=== PATIENT | female | born 1975 | race African-American/Black ===

== ENCOUNTER 2022-10-26 05:49 | Emergency (ER) | payer MEDICAID, OTHER ==
[~2022-10-26] VITALS: Ht 167.6 cm; Wt 64.0 kg
[2022-10-26] MEDS ORDERED: HYDR-4001 MT (07:07)
[2022-10-26] MEDS ORDERED: HYDROCODONE/ACETAMINOPHEN 5/325MG TABLET PO ONE (07:15)
[2022-10-26 08:47] VITALS: BP 133/93
== END 2022-10-26 08:48 | disposition home or self-care (01) ==
LOC: ER 05:49
DX: R59.0 Localized enlarged lymph nodes (principal); R00.0 Tachycardia, unspecified; I73.9 Peripheral vascular disease, unspecified; Z95.1 Presence of aortocoronary bypass graft
CPT/HCPCS: 93005; 99283

== ENCOUNTER 2022-10-30 03:15 | Inpatient (IN) | payer MEDICAID, OTHER ==
[~2022-10-30] VITALS: Ht 170.2 cm; Wt 59.9 kg
[~2022-10-30 03:15] MED LIST: HYDR-4001 MT
[2022-10-30 04:47] LABS: HEMATOCRIT. 32.6 % (36.0-48.0); HEMOGLOBIN. 10.9 g/dL (12.0-16.0); MEAN CORPUSCULAR HEMOGLOBIN 28.3 pg (28.0-32.0); MEAN CORPUSCULAR VOLUME 84.9 fL (81.0-99.0); MEAN PLATELET VOLUME 7.1 fl (7.4-10.4); PLATELET 638 x1000/uL (130-400); RED BLOOD CELL COUNT 3.84 mill/uL (4.2-5.4); RED CELL DISTRIBUTION WIDTH 17.4 % (11.6-14.6)
[2022-10-30 04:54] LABS: CHLORIDE 93 mEq/L (98-107)
[2022-10-30 04:57] LABS: INR 1.2; PROTHROMBIN TIME 12.4 sec (9.6-11.0)
[2022-10-30] MEDS ORDERED: ONDANSETRON HCL 4MG/2ML INJ IV STA (05:22)
[2022-10-30] MEDS ORDERED: MORPHINE SULFATE 4 MG/ML CPJ (NOT FOR IM USE) IV STA (05:22)
[2022-10-30] MEDS ORDERED: DIPHENHYDRAMINE 50MG/ML VIAL IV ONE (05:30)
[2022-10-30] MEDS ORDERED: PIPERACILLIN/TAZ 3.375G PREMIX 50 ML IV ONE (06:00)
[2022-10-30] MEDS ORDERED: VANCOMYCIN 1G PREMIX 200 ML IV ONE (06:00)
[2022-10-30] MEDS ORDERED: SODIUM CHLORIDE 0.9% 1000ML BAG (SEPSIS BOLUS) IV ONE (06:00)
[2022-10-30 06:20] LABS: PLATELET ESTIMATE INCREAS
[2022-10-30 06:27] LABS: CHLORIDE 92 mEq/L (98-107)
[2022-10-30 06:46] LABS: INR 1.2; PROTHROMBIN TIME 12.3 sec (9.6-11.0)
[2022-10-30] MEDS ORDERED: VANCOMYCIN 1G PREMIX 200 ML IV NR (07:45)
[2022-10-30] MEDS ORDERED: ACETAMINOPHEN 325MG TABLET PO ONE (08:15)
[2022-10-30 09:35] LABS: HCG SCREEN NEGATIVE
[2022-10-30] MEDS: KETOROLAC 30MG/ML VIAL IV PRN ×3 (11:51→23:45)
[2022-10-30] MEDS ORDERED: NALOXONE HCL 0.4MG/ML VIAL IV PRN (12:00)
[2022-10-30] MEDS ORDERED: MORPHINE SULFATE 4 MG/ML CPJ (NOT FOR IM USE) IV ONE (13:00)
[2022-10-30] MEDS ORDERED: PIPERACILLIN/TAZOBACTAM 3.375 G in DEXTROSE 5% WATER 50 ML IV SCH (14:00)
[2022-10-30] MEDS ORDERED: PIPERACILLIN/TAZ 3.375G PREMIX 50 ML IV SCH (14:00)
[2022-10-30 17:00] VITALS: BP 152/83
[2022-10-30 17:07] VITALS: BP 152/83
[2022-10-30] MEDS ORDERED: PROT20 PO (18:10)
[2022-10-30] MEDS ORDERED: ASPI-1497 PO (18:10)
[2022-10-30] MEDS ORDERED: BENA40TA91 PO (18:10)
[2022-10-30] MEDS ORDERED: AMLO10TA80 PO (18:10)
[2022-10-30] MEDS ORDERED: LACTULOSE 20G/30ML UDC PO NR (18:45)
[2022-10-30] MEDS: AMLODIPINE 5MG TABLET PO SCH (18:54)
[2022-10-30 19:59] LABS: CLARITY URINE CLOUDY (CLEAR); COLOR URINE DARK YELLOW (YELLOW); KETONES URINE TRACE (NEGATIVE); LEUKOCYTE ESTERASE URINE TRACE (NEGATIVE); NITRITE URINE NEGATIVE (NEGATIVE); OCCULT BLOOD URINE NEGATIVE (NEGATIVE); PH URINE 5.5 (4.5-8.0); PROTEIN URINE 1+ (NEGATIVE); SPECIFIC GRAVITY URINE 1.027 (1.005-1.030)
[2022-10-30 20:00] VITALS: BP 126/73
[2022-10-30 20:18] LABS: *AMPHETAMINES SCREEN URINE NEGATIVE (NEGATIVE); *BARBITURATES SCREEN URINE NEGATIVE (NEGATIVE); *BENZODIAZEPINES SCREEN URINE NEGATIVE (NEGATIVE); *COCAINE SCREEN URINE NEGATIVE (NEGATIVE); METHADONE URINE SCREEN NEGATIVE (NEGATIVE); PHENCYCLIDINE URINE SCREEN NEGATIVE (NEGATIVE)
[2022-10-30 20:51] LABS: CANNABINOID URINE SCREEN PRESUMTIVE POSITIVE (NEGATIVE); OPIATES URINE SCREEN PRESUMTIVE POSITIVE (NEGATIVE)
[2022-10-30] MEDS: VANCOMYCIN 1G PREMIX 200 ML IV SCH (22:07)
[2022-10-30] MEDS: PIPERACILLIN/TAZOBACTAM 3.375G in DEXT 5% WATER 50ML IV SCH (22:07)
[2022-10-30] MEDS: ONDANSETRON HCL 4MG/2ML INJ IV PRN (22:58)
[2022-10-31] VITALS: BP 145/84
[2022-10-31] MEDS: ACETAMINOPHEN 325MG TABLET PO PRN ×2 (01:32→15:05)
[2022-10-31 04:00] VITALS: BP 145/84
[2022-10-31] MEDS: KETOROLAC 30MG/ML VIAL IV PRN ×3 (05:56→18:24)
[2022-10-31 07:11] LABS: HEMATOCRIT. 29.9 % (36.0-48.0); HEMOGLOBIN. 10.1 g/dL (12.0-16.0); MEAN CORPUSCULAR HEMOGLOBIN 28.6 pg (28.0-32.0); MEAN CORPUSCULAR VOLUME 85.1 fL (81.0-99.0); MEAN PLATELET VOLUME 7.1 fl (7.4-10.4); PLATELET 475 x1000/uL (130-400); RED BLOOD CELL COUNT 3.52 mill/uL (4.2-5.4); RED CELL DISTRIBUTION WIDTH 17.7 % (11.6-14.6)
[2022-10-31 07:25] LABS: CHLORIDE 99 mEq/L (98-107)
[2022-10-31] MEDS: PIPERACILLIN/TAZOBACTAM 3.375G in DEXT 5% WATER 50ML IV SCH ×3 (07:29→22:22)
[2022-10-31 08:00] VITALS: BP 133/78
[2022-10-31] MEDS: VANCOMYCIN 1G PREMIX 200 ML IV SCH ×2 (09:00→20:48)
[2022-10-31] MEDS: AMLODIPINE 5MG TABLET PO SCH (09:00)
[2022-10-31] MEDS: HYDROCODONE/ACETAMINOPHEN 5/325MG TABLET PO PRN ×2 (09:12→20:56)
[2022-10-31] MEDS ORDERED: POTASSIUM CHLORIDE 20MEQ TABLET SR PO NR (11:45)
[2022-10-31 12:00] VITALS: BP 128/69
[2022-10-31 16:00] VITALS: BP 145/79
[2022-10-31 16:29] LABS: PLATELET ESTIMATE INCREASED
[2022-10-31] MEDS: TRAMADOL 50MG TABLET PO PRN (17:06)
[2022-10-31] MEDS ORDERED: NON FORMULARY PATIENT HOME MED PO PRN (19:00)
[2022-10-31 20:00] VITALS: BP 140/89
[2022-11-01] VITALS: BP 120/75
[2022-11-01] MEDS: KETOROLAC 30MG/ML VIAL IV PRN ×4 (00:21→19:19)
[2022-11-01] MEDS: MELATONIN 3MG TABLET PO PRN ×2 (00:26→23:13)
[2022-11-01] MEDS: HYDROCODONE/ACETAMINOPHEN 5/325MG TABLET PO PRN ×2 (03:00→10:03)
[2022-11-01 04:00] VITALS: BP 124/77
[2022-11-01] MEDS: PIPERACILLIN/TAZOBACTAM 3.375G in DEXT 5% WATER 50ML IV SCH ×3 (05:19→21:11)
[2022-11-01 07:27] LABS: CHLORIDE 97 mEq/L (98-107)
[2022-11-01 08:00] VITALS: BP 125/71
[2022-11-01] MEDS: VANCOMYCIN 1G PREMIX 200 ML IV SCH ×2 (10:02→18:33)
[2022-11-01] MEDS: AMLODIPINE 5MG TABLET PO SCH (10:04)
[2022-11-01] MEDS ORDERED: POTASSIUM CHLORIDE 20MEQ TABLET SR PO NR (11:30)
[2022-11-01 12:00] VITALS: BP 117/70
[2022-11-01 14:36] LABS: HEMATOCRIT. 28.3 % (36.0-48.0); HEMOGLOBIN. 9.3 g/dL (12.0-16.0); MEAN CORPUSCULAR HEMOGLOBIN 28.3 pg (28.0-32.0); MEAN PLATELET VOLUME 7.4 fl (7.4-10.4); PLATELET 477 x1000/uL (130-400); RED BLOOD CELL COUNT 3.29 mill/uL (4.2-5.4)
[2022-11-01 16:00] VITALS: BP 134/71
[2022-11-01] MEDS: OXYCODONE HCL/ACETAMINOPHEN 5/325MG TABLET PO PRN ×2 (16:02→23:04)
[2022-11-01 20:00] VITALS: BP 121/65
[2022-11-01 21:56] LABS: PLATELET ESTIMATE INCREASED
[2022-11-02] VITALS (7 sets, daily range): BP systolic 101–150; BP diastolic 53–71
[2022-11-02] MEDS: VANCOMYCIN 1G PREMIX 200 ML IV SCH ×3 (01:23→17:12)
[2022-11-02] MEDS: KETOROLAC 30MG/ML VIAL IV PRN ×3 (01:24→09:55)
[2022-11-02] MEDS: OXYCODONE HCL/ACETAMINOPHEN 5/325MG TABLET PO PRN ×2 (04:11→11:06)
[2022-11-02] MEDS: PIPERACILLIN/TAZOBACTAM 3.375G in DEXT 5% WATER 50ML IV SCH ×3 (05:29→21:52)
[2022-11-02 07:01] LABS: CHLORIDE 98 mEq/L (98-107)
[2022-11-02 07:17] LABS: BASOPHILS % 0.3 % (0.0-2.0); EOSINOPHILS % 0.2 % (0.0-5.0); HEMATOCRIT. 26.5 % (36.0-48.0); HEMOGLOBIN. 8.8 g/dL (12.0-16.0); LYMPHOCYTES % 8.7 % (20.0-50.0); MEAN CORPUSCULAR HEMOGLOBIN 28.1 pg (28.0-32.0); MEAN CORPUSCULAR VOLUME 84.7 fL (81.0-99.0); MEAN PLATELET VOLUME 7.4 fl (7.4-10.4); MONOCYTES % 6.8 % (2.0-8.0); PLATELET 478 x1000/uL (130-400); RED BLOOD CELL COUNT 3.13 mill/uL (4.2-5.4); RED CELL DISTRIBUTION WIDTH 17.6 % (11.6-14.6)
[2022-11-02] MEDS: AMLODIPINE 5MG TABLET PO SCH (08:08)
[2022-11-02] MEDS ORDERED: POTASSIUM CHLORIDE 20MEQ TABLET SR PO NR (10:00)
[2022-11-02] MEDS: LIDOCAINE 5% PATCH TOP SCH (13:36)
[2022-11-02] MEDS: ACETAMINOPHEN 325MG TABLET PO SCH ×2 (13:36→17:12)
[2022-11-02] MEDS: DOCUSATE SODIUM 250MG CAPSULE PO SCH (13:37)
[2022-11-02] MEDS: TRAMADOL 50MG TABLET PO PRN (13:37)
[2022-11-02] MEDS: OXYCODONE HCL 5MG TABLET PO PRN ×2 (16:22→21:51)
[2022-11-02] MEDS: DIPHENHYDRAMINE 50MG/ML VIAL IV PRN (17:58)
[2022-11-02] MEDS: MELATONIN 3MG TABLET PO PRN (21:52)
[2022-11-02] MEDS: GUAIFENESIN 600MG ER TABLET PO SCH (22:00)
[2022-11-03] VITALS: BP 137/71
[2022-11-03] MEDS: ACETAMINOPHEN 325MG TABLET PO SCH ×5 (00:37→23:54)
[2022-11-03] MEDS: TRAMADOL 50MG TABLET PO PRN ×2 (02:04→08:21)
[2022-11-03] MEDS: VANCOMYCIN 1G PREMIX 200 ML IV SCH ×3 (02:13→17:33)
[2022-11-03 04:00] VITALS: BP 129/73
[2022-11-03] MEDS: OXYCODONE HCL 5MG TABLET PO PRN ×5 (04:45→21:55)
[2022-11-03] MEDS: PIPERACILLIN/TAZOBACTAM 3.375G in DEXT 5% WATER 50ML IV SCH ×3 (06:08→20:39)
[2022-11-03] MEDS ORDERED: LIDOCAINE HCL 1% 30ML VIAL (10MG/ML) ONE (08:03)
[2022-11-03] MEDS: DOCUSATE SODIUM 250MG CAPSULE PO SCH (08:21)
[2022-11-03] MEDS: AMLODIPINE 5MG TABLET PO SCH (08:21)
[2022-11-03] MEDS: GUAIFENESIN 600MG ER TABLET PO SCH ×2 (08:21→20:38)
[2022-11-03] MEDS: LIDOCAINE 5% PATCH TOP SCH (08:22)
[2022-11-03 08:29] VITALS: BP 154/80
[2022-11-03] MEDS: LORAZEPAM 2MG/ML CPJ IV PRN (09:58)
[2022-11-03] MEDS ORDERED: POTASSIUM CHLORIDE 20MEQ TABLET SR PO NR (11:15)
[2022-11-03 12:00] VITALS: BP 137/70
[2022-11-03] MEDS: DIPHENHYDRAMINE 50MG/ML VIAL IV PRN ×2 (12:03→22:03)
[2022-11-03 16:00] VITALS: BP 102/61
[2022-11-03 20:00] VITALS: BP 113/61
[2022-11-04] VITALS: BP 153/81
[2022-11-04] MEDS: MELATONIN 3MG TABLET PO PRN (01:05)
[2022-11-04] MEDS: ACETAMINOPHEN 325MG TABLET PO SCH ×2 (01:07→12:00)
[2022-11-04] MEDS: OXYCODONE HCL 5MG TABLET PO PRN ×4 (04:04→21:14)
[2022-11-04] MEDS: DIPHENHYDRAMINE 50MG/ML VIAL IV PRN ×3 (04:05→17:06)
[2022-11-04 04:27] VITALS: BP 125/67
[2022-11-04 06:20] LABS: CHLORIDE 98 mEq/L (98-107)
[2022-11-04 06:28] LABS: BASOPHILS % 0.7 % (0.0-2.0); EOSINOPHILS % 0.3 % (0.0-5.0); HEMATOCRIT. 24.9 % (36.0-48.0); HEMOGLOBIN. 8.3 g/dL (12.0-16.0); LYMPHOCYTES % 13.8 % (20.0-50.0); MEAN CORPUSCULAR HEMOGLOBIN 27.8 pg (28.0-32.0); MEAN CORPUSCULAR VOLUME 83.6 fL (81.0-99.0); MEAN PLATELET VOLUME 7.1 fl (7.4-10.4); MONOCYTES % 7.7 % (2.0-8.0); NEUTROPHILS % 77.5 % (40.0-76.0); PLATELET 491 x1000/uL (130-400); RED BLOOD CELL COUNT 2.98 mill/uL (4.2-5.4); RED CELL DISTRIBUTION WIDTH 18.2 % (11.6-14.6)
[2022-11-04] MEDS: PIPERACILLIN/TAZOBACTAM 3.375G in DEXT 5% WATER 50ML IV SCH ×3 (06:43→21:04)
[2022-11-04 08:00] VITALS: BP 128/67
[2022-11-04] MEDS ORDERED: LIDOCAINE HCL 1% 10 MG/ML 10ML VIAL ONE (08:29)
[2022-11-04] MEDS: LIDOCAINE 5% PATCH TOP SCH (09:25)
[2022-11-04] MEDS: ACETAMINOPHEN 325MG TABLET PO PRN (09:26)
[2022-11-04] MEDS: DOCUSATE SODIUM 250MG CAPSULE PO SCH (09:26)
[2022-11-04] MEDS: GUAIFENESIN 600MG ER TABLET PO SCH ×2 (09:26→21:07)
[2022-11-04] MEDS: AMLODIPINE 5MG TABLET PO SCH (09:26)
[2022-11-04] MEDS ORDERED: LIDOCAINE HCL/PF 1% 10 MG/ML 5ML VIAL ONE (11:15)
[2022-11-04] MEDS ORDERED: MORPHINE SULFATE 2 MG/ML CPJ (NOT FOR IM USE) IV NR (11:30)
[2022-11-04 12:00] VITALS: BP 102/56
[2022-11-04] MEDS: LORAZEPAM 2MG/ML CPJ IV PRN ×2 (13:30→21:05)
[2022-11-04 16:00] VITALS: BP 138/74
[2022-11-04 20:00] VITALS: BP 130/70
[2022-11-05] VITALS (7 sets, daily range): BP systolic 101–128; BP diastolic 58–74
[2022-11-05] MEDS: DIPHENHYDRAMINE 50MG/ML VIAL IV PRN ×2 (01:23→08:18)
[2022-11-05] MEDS: OXYCODONE HCL 5MG TABLET PO PRN ×6 (01:23→22:04)
[2022-11-05] MEDS: MELATONIN 3MG TABLET PO PRN (03:43)
[2022-11-05] MEDS: PIPERACILLIN/TAZOBACTAM 3.375G in DEXT 5% WATER 50ML IV SCH ×3 (05:42→22:04)
[2022-11-05 06:32] LABS: BASOPHILS % 0.5 % (0.0-2.0); EOSINOPHILS % 0.2 % (0.0-5.0); HEMATOCRIT. 25.2 % (36.0-48.0); HEMOGLOBIN. 8.4 g/dL (12.0-16.0); LYMPHOCYTES % 14.8 % (20.0-50.0); MEAN CORPUSCULAR HEMOGLOBIN 27.7 pg (28.0-32.0); MEAN CORPUSCULAR VOLUME 83.7 fL (81.0-99.0); MEAN PLATELET VOLUME 6.9 fl (7.4-10.4); MONOCYTES % 7.2 % (2.0-8.0); NEUTROPHILS % 77.3 % (40.0-76.0); PLATELET 594 x1000/uL (130-400); RED BLOOD CELL COUNT 3.01 mill/uL (4.2-5.4); RED CELL DISTRIBUTION WIDTH 17.8 % (11.6-14.6)
[2022-11-05 06:41] LABS: CHLORIDE 96 mEq/L (98-107)
[2022-11-05] MEDS: LIDOCAINE 5% PATCH TOP SCH (08:17)
[2022-11-05] MEDS: GUAIFENESIN 600MG ER TABLET PO SCH ×2 (08:17→20:33)
[2022-11-05] MEDS: AMLODIPINE 5MG TABLET PO SCH (08:18)
[2022-11-05] MEDS: DOCUSATE SODIUM 250MG CAPSULE PO SCH (08:18)
[2022-11-05] MEDS ORDERED: DIPHENHYDRAMINE 12.5MG/5ML UDC PO PRN (12:45)
[2022-11-05] MEDS: IBUPROFEN 600MG TABLET PO SCH ×2 (12:57→20:33)
[2022-11-05] MEDS ORDERED: DIPHENHYDRAMINE 25MG CAPSULE PO NR (15:30)
[2022-11-05] MEDS: DIPHENHYDRAMINE 50MG CAPSULE PO PRN (20:33)
[2022-11-05] MEDS ORDERED: DIPHENHYDRAMINE 50MG/ML VIAL IV NR (22:30)
[2022-11-06] VITALS: BP 102/57
[2022-11-06] MEDS: DIPHENHYDRAMINE 50MG CAPSULE PO PRN ×4 (03:04→21:44)
[2022-11-06] MEDS: OXYCODONE HCL 5MG TABLET PO PRN ×4 (03:21→19:22)
[2022-11-06 04:00] VITALS: BP 103/54
[2022-11-06] MEDS: PIPERACILLIN/TAZOBACTAM 3.375G in DEXT 5% WATER 50ML IV SCH ×2 (05:45→13:49)
[2022-11-06] MEDS: IBUPROFEN 600MG TABLET PO SCH ×3 (05:45→20:48)
[2022-11-06 07:44] LABS: CHLORIDE 99 mEq/L (98-107)
[2022-11-06 07:49] LABS: HEMATOCRIT. 24.4 % (36.0-48.0); HEMOGLOBIN. 8.1 g/dL (12.0-16.0); MEAN CORPUSCULAR VOLUME 84.6 fL (81.0-99.0); MEAN PLATELET VOLUME 6.8 fl (7.4-10.4); PLATELET 562 x1000/uL (130-400); RED BLOOD CELL COUNT 2.88 mill/uL (4.2-5.4); RED CELL DISTRIBUTION WIDTH 17.5 % (11.6-14.6)
[2022-11-06 08:00] VITALS: BP 99/55
[2022-11-06] MEDS ORDERED: IOHEXOL-350 100 ML BOTTLE ONE (08:48)
[2022-11-06] MEDS: AMLODIPINE 5MG TABLET PO SCH (09:00)
[2022-11-06] MEDS: GUAIFENESIN 600MG ER TABLET PO SCH ×2 (09:34→20:31)
[2022-11-06] MEDS: DOCUSATE SODIUM 250MG CAPSULE PO SCH (09:34)
[2022-11-06] MEDS: LIDOCAINE 5% PATCH TOP SCH (09:36)
[2022-11-06] MEDS ORDERED: LACTULOSE 20G/30ML UDC PO NR (11:00)
[2022-11-06 11:28] LABS: UCG SCREEN NEGATIVE
[2022-11-06 12:00] VITALS: BP 108/67
[2022-11-06] MEDS: PREDNISONE 20MG TABLET PO SCH ×2 (12:10→17:32)
[2022-11-06 13:04] LABS: PLATELET ESTIMATE INCREASED
[2022-11-06 16:00] VITALS: BP 113/66
[2022-11-06 20:00] VITALS: BP 120/65
[2022-11-06] MEDS: MEROPENEM 1,000 MG in SODIUM CHLORIDE 0.9% 100 ML IV SCH (20:31)
[2022-11-06] MEDS: ONDANSETRON HCL 4MG/2ML INJ IV PRN (23:01)
[2022-11-07] VITALS (7 sets, daily range): BP systolic 108–145; BP diastolic 56–80
[2022-11-07] MEDS: OXYCODONE HCL 5MG TABLET PO PRN ×4 (00:04→12:20)
[2022-11-07] MEDS: MELATONIN 3MG TABLET PO PRN ×2 (00:04→23:51)
[2022-11-07] MEDS: DIPHENHYDRAMINE 50MG CAPSULE PO PRN ×4 (04:02→21:58)
[2022-11-07] MEDS: MEROPENEM 1,000 MG in SODIUM CHLORIDE 0.9% 100 ML IV SCH ×3 (04:02→20:15)
[2022-11-07] MEDS: IBUPROFEN 600MG TABLET PO SCH ×3 (04:03→20:15)
[2022-11-07] MEDS: DOCUSATE SODIUM 250MG CAPSULE PO SCH (08:10)
[2022-11-07] MEDS: AMLODIPINE 5MG TABLET PO SCH (08:10)
[2022-11-07] MEDS: PREDNISONE 20MG TABLET PO SCH ×2 (08:10→16:01)
[2022-11-07] MEDS: GUAIFENESIN 600MG ER TABLET PO SCH ×2 (08:10→20:15)
[2022-11-07] MEDS: LIDOCAINE 5% PATCH TOP SCH (08:11)
[2022-11-07] MEDS: HYDROCODONE/ACETAMINOPHEN 5/325MG TABLET PO PRN ×3 (16:01→23:51)
[2022-11-07 16:16] LABS: BASOPHILS % 0.2 % (0.0-2.0); HEMATOCRIT. 28.4 % (36.0-48.0); LYMPHOCYTES % 11.1 % (20.0-50.0); MEAN CORPUSCULAR HEMOGLOBIN 27.2 pg (28.0-32.0); MEAN CORPUSCULAR VOLUME 86.3 fL (81.0-99.0); MONOCYTES % 3.2 % (2.0-8.0); NEUTROPHILS % 85.5 % (40.0-76.0); PLATELET 792 x1000/uL (130-400); RED BLOOD CELL COUNT 3.29 mill/uL (4.2-5.4)
[2022-11-07 16:31] LABS: CHLORIDE 101 mEq/L (98-107)
[2022-11-07] MEDS: BISACODYL 5MG TABLET PO PRN (21:58)
[2022-11-07] MEDS: ONDANSETRON HCL 4MG/2ML INJ IV PRN (23:04)
[2022-11-08] MEDS: MEROPENEM 1,000 MG in SODIUM CHLORIDE 0.9% 100 ML IV SCH ×3 (03:59→20:00)
[2022-11-08] MEDS: IBUPROFEN 600MG TABLET PO SCH ×3 (03:59→20:30)
[2022-11-08] MEDS: DIPHENHYDRAMINE 50MG CAPSULE PO PRN ×4 (03:59→22:08)
[2022-11-08 04:00] VITALS: BP 134/74
[2022-11-08] MEDS: HYDROCODONE/ACETAMINOPHEN 5/325MG TABLET PO PRN ×4 (05:33→22:09)
[2022-11-08 06:55] LABS: BASOPHILS % 0.1 % (0.0-2.0); LYMPHOCYTES % 17.7 % (20.0-50.0); MEAN CORPUSCULAR HEMOGLOBIN 28.1 pg (28.0-32.0); MEAN CORPUSCULAR VOLUME 84.5 fL (81.0-99.0); MEAN PLATELET VOLUME 6.7 fl (7.4-10.4); MONOCYTES % 5.9 % (2.0-8.0); NEUTROPHILS % 76.3 % (40.0-76.0); PLATELET 700 x1000/uL (130-400); RED BLOOD CELL COUNT 2.68 mill/uL (4.2-5.4); RED CELL DISTRIBUTION WIDTH 17.6 % (11.6-14.6)
[2022-11-08] MEDS: MAGNESIUM/ALUMINUM HYDROXIDE/SIMETHICONE 30ML UDC PO PRN ×2 (06:56→16:42)
[2022-11-08 06:57] LABS: CHLORIDE 103 mEq/L (98-107)
[2022-11-08 07:30] LABS: HEMOGLOBIN. 7.5 g/dL (12.0-16.0)
[2022-11-08 07:31] LABS: HEMATOCRIT. 22.7 % (36.0-48.0)
[2022-11-08 08:00] VITALS: BP 137/83
[2022-11-08] MEDS: LIDOCAINE 5% PATCH TOP SCH (09:00)
[2022-11-08] MEDS: GUAIFENESIN 600MG ER TABLET PO SCH ×2 (09:59→22:09)
[2022-11-08] MEDS: DOCUSATE SODIUM 250MG CAPSULE PO SCH (09:59)
[2022-11-08] MEDS: PREDNISONE 20MG TABLET PO SCH ×2 (09:59→16:40)
[2022-11-08] MEDS: AMLODIPINE 5MG TABLET PO SCH (10:00)
[2022-11-08 12:00] VITALS: BP 148/83
[2022-11-08] MEDS: ONDANSETRON HCL 4MG/2ML INJ IV PRN ×2 (14:17→20:47)
[2022-11-08 16:00] VITALS: BP 128/69
[2022-11-08 20:00] VITALS: BP 129/78
[2022-11-08] MEDS: MELATONIN 3MG TABLET PO PRN (22:09)
[2022-11-09] VITALS: BP 119/66
[2022-11-09] MEDS: HYDROCODONE/ACETAMINOPHEN 5/325MG TABLET PO PRN ×4 (02:19→17:45)
[2022-11-09] MEDS: DIPHENHYDRAMINE 50MG CAPSULE PO PRN ×4 (02:19→17:45)
[2022-11-09 04:00] VITALS: BP 170/68
[2022-11-09] MEDS: MEROPENEM 1,000 MG in SODIUM CHLORIDE 0.9% 100 ML IV SCH ×2 (04:54→11:37)
[2022-11-09] MEDS: ONDANSETRON HCL 4MG/2ML INJ IV PRN ×2 (04:54→11:46)
[2022-11-09] MEDS: IBUPROFEN 600MG TABLET PO SCH ×2 (04:55→11:38)
[2022-11-09 08:00] VITALS: BP 141/71
[2022-11-09 08:46] LABS: BASOPHILS % 0.3 % (0.0-2.0); HEMATOCRIT. 26.5 % (36.0-48.0); HEMOGLOBIN. 8.5 g/dL (12.0-16.0); MEAN CORPUSCULAR HEMOGLOBIN 27.6 pg (28.0-32.0); MEAN CORPUSCULAR VOLUME 85.6 fL (81.0-99.0); MEAN PLATELET VOLUME 6.6 fl (7.4-10.4); NEUTROPHILS % 72.7 % (40.0-76.0); PLATELET 846 x1000/uL (130-400); RED BLOOD CELL COUNT 3.09 mill/uL (4.2-5.4); RED CELL DISTRIBUTION WIDTH 17.8 % (11.6-14.6)
[2022-11-09 09:05] LABS: CHLORIDE 102 mEq/L (98-107)
[2022-11-09] MEDS: DOCUSATE SODIUM 250MG CAPSULE PO SCH (09:17)
[2022-11-09] MEDS: BISACODYL 5MG TABLET PO PRN (09:18)
[2022-11-09] MEDS: GUAIFENESIN 600MG ER TABLET PO SCH (09:18)
[2022-11-09] MEDS: AMLODIPINE 5MG TABLET PO SCH (09:18)
[2022-11-09] MEDS: PREDNISONE 20MG TABLET PO SCH ×2 (09:19→17:46)
[2022-11-09] MEDS: LIDOCAINE 5% PATCH TOP SCH (09:19)
[2022-11-09 12:00] VITALS: BP 153/71
[2022-11-09 16:00] VITALS: BP 122/73
[2022-11-09 18:32] VITALS: BP 115/60
[2022-11-10] MEDS ORDERED: HYDR-4001 MT (11:21)
[2022-11-12 07:10] LABS: ANA IFA Negative (.)
== END 2022-11-09 19:25 | disposition home health service (06) | DRG 206 ==
LOC: ER 03:15 → EDBEDREQTM 06:36 → EDBEDREQSVC 06:36 → 8WST 06:55 → EDBEDREQ 07:00
PROVIDERS: ADMIT Internal Medicine; ATTEND Internal Medicine
PROC: 05H433Z Insertion of Infusion Device into Left Innominate Vein, Percutaneous Approach (ICD-10-PCS; principal; 2022-11-04)
PROC: B54NZZA Ultrasonography of Left Upper Extremity Veins, Guidance (ICD-10-PCS; 2022-11-04)
DX: T82.7XXA Infection and inflammatory reaction due to other cardiac and vascular devices, implants and grafts, initial encounter (principal); A40.8 Other streptococcal sepsis; R65.20 Severe sepsis without septic shock; E43 Unspecified severe protein-calorie malnutrition; E87.20 Acidosis, unspecified; D64.9 Anemia, unspecified; E87.6 Hypokalemia; I10 Essential (primary) hypertension; L03.317 Cellulitis of buttock; M60.852 Other myositis, left thigh; Z68.20 Body mass index [BMI] 20.0-20.9, adult; Z87.891 Personal history of nicotine dependence; Z82.49 Family history of ischemic heart disease and other diseases of the circulatory system; Y84.8 Other medical procedures as the cause of abnormal reaction of the patient, or of later complication, without mention of misadventure at the time of the procedure
CPT/HCPCS: 36415; 36573; 71045; 72148; 72191; 73706; 74176; 80048; 80053; 80202; 80305; 81003; 81025; 83605; 83880; 84145; 84484; 84703; 85025; 86256; 86850; 86900; 87077; 87186; 87426; 87804; 93005; 93306; 97161; 97165; 99291; C1893; J1200; J1885; J2060; J2185; J2270; J2405; J2543; J3370; J3490; J7030; J7050; J7060; J7512; Q0163; Q9967